=== PATIENT | male | born 1955 | race African-American/Black ===

== ENCOUNTER 2017-01-17 13:36 | Emergency (ER) | payer BC ==
[~2017-01-17] VITALS: Ht 185.4 cm; Wt 127.0 kg
[~2017-01-17 13:36] MED LIST: AMLO5TAB4 PO; HYDR25TA PO; Hydrocodone/Acetaminophen PO; INSU100V8 SQ; OLME40TA PO; SIMV40TA3 PO; TRIA1TAB3 PO; WARF7.5T PO; WARF7.5T6 PO
[2017-01-17 14:37] VITALS: BP 100/65
--- NOTE | 2017-01-17 15:51 | PHYS DOC ---
Past Medical History Past Medical History: Diabetes-Type II, DVT, High Cholesterol, Heart Disease, Hypertension, Other Additional Past Medical Histor: [facility] Past Surgical History: Pacemaker Alcohol Use: None Drug Use: None Adult General Chief Complaint Chief Complaint: COUGH HPI HPI Patient is a 61 year old female presents emergency department stating that he was exposed to upper respiratory infection on Wednesday. He states that he's developed a cough congestion denies any fever but states that he's felt warm. Patinet denies taking anything [id number]. He denies any nausea or vomiting. Review of Systems Review of Systems Constitutional: Denies fever or chills [] Eyes: Denies change in visual acuity, redness, or eye pain [] HENT: nasal congestion denies sore throat [] Respiratory: cough denies shortness of breath [] Cardiovascular: No additional information not addressed in HPI [] GI: Denies abdominal pain, nausea, vomiting, bloody stools or diarrhea [] : Denies dysuria or hematuria [] Musculoskeletal: Denies back pain or joint pain [] Integument: Denies rash or skin lesions [] Neurologic: Denies headache, focal weakness or sensory changes [] Allergies Allergies Allergies Coded Allergies Type Severity Reaction Last Updated Verified No Known Drug Allergies 04/09/14 No Physical Exam Physical Exam Constitutional: Well developed, well nourished, no acute distress, non-toxic appearance. [] HENT: Normocephalic, atraumatic, bilateral external ears normal, oropharynx moist, no oral exudates, nose normal. Bilateral tympanic membranes appear to be normal. Throat with no erythematous post nasal drip. No exudate noted Eyes: PERRLA, EOMI, conjunctiva normal, no discharge. [] Neck: Normal range of motion, no tenderness, supple, no stridor. [] Cardiovascular:Heart rate regular rhythm, no murmur [] Lungs & Thorax: Bilateral breath sounds clear to auscultation [] Skin: Warm, dry, no erythema, no rash. [] Back: No tenderness Extremities: No tenderness, no cyanosis, no clubbing, ROM intact, no edema. [] Neurologic: Alert and oriented X 3, normal motor function, normal sensory function, no focal deficits noted. [] Psychologic: Affect normal, judgement normal, mood normal. [] Current Patient Data Vital Signs Vital Signs Date Time Temp Pulse Resp B/P Pulse Ox O2 Delivery O2 Flow Rate FiO2 01/17/17 14:37 98.8 65 18 97 Room Air 98.8 Lab Values Laboratory Tests Test 01/17/17 15:25 Influenza Type A Antigen Negative (NEGATIVE) Influenza Type B Antigen Negative (NEGATIVE) EKG EKG [] Radiology/Procedures Radiology/Procedures [] Course & Med Decision Making Course & Med Decision Making Pertinent Labs and Imaging studies reviewed. (See chart for details) Influenza Swabs were negative. Patient will be discharged home with recommendations for Tylenol and ibuprofen for pain and discomfort as well as fever. Patient will be provided with some amoxicillin for upper respiratory infection. Patient agrees with discharge instructions treatment regimens and follow-up recommendations. Signs and symptoms to return back to emergency department as been provided. [] Dragon Disclaimer Dragon Disclaimer This electronic medical record was generated, in whole or in part, using a voice recognition dictation system. Departure Departure Impression: Primary Impression: URI (upper respiratory infection) Disposition: HOME, SELF-CARE Condition: STABLE Referrals: SAL BRUSH (PCP) Patient Instructions: Upper Respiratory Infection, Adult, [id number] Additional Instructions: Activity as tolerated. Tylenol or ibuprofen for fever chills or generalized body aches and discomfort. Drink plenty of fluids such as water, Gatorade or propel. Medication as prescribed. You may take Mucinex DM over the counter for cough and congestion. Take as directed by manufacture Followup with your primary care provider in 5-7 days Return to emergency department as needed for signs and symptoms that become worse. Scripts Amoxicillin 500 Mg Capsule1 Cap PO BID #20 CAP Prov:NNEKA IQBAL NP 01/17/17 NNEKA IQBAL [employer] Jan 17, 2017 15:51
[2017-01-17 16:12] LABS: OBC FLU VALID
[2017-01-17] MEDS ORDERED: AMOX500C PO (16:39)
== END 2017-01-17 16:45 | disposition home or self-care (01) ==
LOC: ER 13:36
DX: J06.9 Acute upper respiratory infection, unspecified (principal); E11.9 Type 2 diabetes mellitus without complications; E78.00 Pure hypercholesterolemia, unspecified; I11.9 Hypertensive heart disease without heart failure; Z95.0 Presence of cardiac pacemaker; Z86.718 Personal history of other venous thrombosis and embolism
CPT/HCPCS: 87804; 99284

== ENCOUNTER 2017-11-11 02:55 | Emergency (ER) | payer BC ==
[~2017-11-11] VITALS: Ht 185.4 cm; Wt 120.2 kg
[2017-11-11 02:55] VITALS: BP 174/90
[~2017-11-11 02:55] MED LIST changes: +AMOX500C PO; -OLME40TA PO; +OLME40TA12 PO; -WARF7.5T PO; +WARF7.5T48 PO
[2017-11-11 04:25] LABS: BASO # 0.1 x10^3/uL (0.0-0.2); BASO % 1 % (0-3); EOS % 2 % (0-3); HEMATOCRIT 36.3 % (39.0-53.0); HEMOGLOBIN 11.8 g/dL (13.0-17.5); LYMPH # 1.7 x10^3/uL (1.0-4.8); LYMPH % 17 % (24-48); MEAN CORPUSCULAR HEMOGLOBIN 31 pg (25-35); MEAN CORPUSCULAR HGB CONC 32 g/dL (31-37); MEAN CORPUSCULAR VOLUME 95 fL (79-100); MONO % 6 % (0-9); NEUT % 75 % (31-73); PLATELET COUNT 224 x10^3/uL (140-400); RED BLOOD COUNT 3.82 x10^6/uL (4.30-5.70); RED CELL DISTRIBUTION WIDTH 14.9 % (11.5-14.5); WHITE BLOOD COUNT 10.3 x10^3/uL (4.0-11.0)
[2017-11-11 04:34] LABS: INR 2.9 (0.8-1.1); PROTHROMBIN TIME PATIENT 28.4 SEC (11.7-14.0)
[2017-11-11 04:46] LABS: CALCIUM 8.7 mg/dL (8.5-10.1); CREATININE 1.2 mg/dL (0.7-1.3); GFR 74.7; POTASSIUM 4.1 mmol/L (3.5-5.1)
[2017-11-11 04:51] LABS: ALBUMIN 3.2 g/dL (3.4-5.0); ALBUMIN/GLOBULIN RATIO 0.6 (1.0-1.7); TOTAL BILIRUBIN 0.5 mg/dL (0.2-1.0); TOTAL PROTEIN 8.7 g/dL (6.4-8.2)
--- NOTE | 2017-11-11 05:04 | PHYS DOC ---
Past Medical History Past Medical History: Diabetes-Type II, DVT, High Cholesterol, Heart Disease, Hypertension, Other Additional Past Medical Histor: [facility] Past Surgical History: Pacemaker Alcohol Use: None Drug Use: None Adult General Chief Complaint Chief Complaint: LOWER EXT PAIN HPI HPI Patient is a 62 year old -[place] male with history of DVT and diabetes who presents with right posterior leg pain since yesterday. Patient denies trauma or repetitive strain injury. Patient is currently on Coumadin compliant with treatment.Denies chest pain shortness of breath. Patient has been using crutches to ambulate. No pain medications taken prior to ED arrival.[ ] Review of Systems Review of Systems Review symptoms as per history of present illness. All other review symptoms are negative. All other systems were reviewed and found to be within normal limits, except as documented in this note. Allergies Allergies Allergies Coded Allergies Type Severity Reaction Last Updated Verified No Known Drug Allergies 04/09/14 No Physical Exam Physical Exam Constitutional: Well developed, well nourished, no acute distress, non-toxic appearance. [] HENT: Normocephalic, atraumatic, bilateral external ears normal, oropharynx moist, no oral exudates, nose normal. [] Eyes: PERRLA, EOMI, conjunctiva normal, no discharge. [] Neck: Normal range of motion, no tenderness, supple, no stridor. [] Cardiovascular:Heart rate regular rhythm, no murmur [] Extremities: No tenderness, negative Homans sign. Tenderness over Achilles tendon. [] Neurologic: Alert and oriented X 3, normal motor function, normal sensory function, no focal deficits noted. [] Psychologic: Affect normal, judgement normal, mood normal. [] Current Patient Data Vital Signs Vital Signs Date Time Temp Pulse Resp B/P (MAP) Pulse Ox O2 Delivery O2 Flow Rate FiO2 11/11/17 02:55 98.0 70 18 174/90 (118) 98 Room Air 98.0 Lab Values Laboratory Tests Test 11/11/17 04:18 White Blood Count 10.3 x10^3/uL (4.0-11.0) Red Blood Count 3.82 x10^6/uL (4.30-5.70) L Hemoglobin 11.8 g/dL (13.0-17.5) L Hematocrit 36.3 % (39.0-53.0) L Mean Corpuscular Volume 95 fL (79-100) Mean Corpuscular Hemoglobin 31 pg (25-35) Mean Corpuscular Hemoglobin Concent 32 g/dL (31-37) Red Cell Distribution Width 14.9 % (11.5-14.5) H Platelet Count 224 x10^3/uL (140-400) Neutrophils (%) (Auto) 75 % (31-73) H Lymphocytes (%) (Auto) 17 % (24-48) L Monocytes (%) (Auto) 6 % (0-9) Eosinophils (%) (Auto) 2 % (0-3) Basophils (%) (Auto) 1 % (0-3) Neutrophils # (Auto) 7.8 x10^3uL (1.8-7.7) H Lymphocytes # (Auto) 1.7 x10^3/uL (1.0-4.8) Monocytes # (Auto) 0.6 x10^3/uL (0.0-1.1) Eosinophils # (Auto) 0.2 x10^3/uL (0.0-0.7) Basophils # (Auto) 0.1 x10^3/uL (0.0-0.2) Prothrombin Time 28.4 SEC (11.7-14.0) H Prothrombin Time INR 2.9 (0.8-1.1) H D-Dimer (Virgen) 0.83 ug/mlFEU (0.00-0.50) H Sodium Level 138 mmol/L (136-145) Potassium Level 4.1 mmol/L (3.5-5.1) Chloride Level 101 mmol/L (98-107) Carbon Dioxide Level 28 mmol/L (21-32) Anion Gap 9 (6-14) Blood Urea Nitrogen 17 mg/dL (8-26) Creatinine 1.2 mg/dL (0.7-1.3) Estimated GFR (Cockcroft-Gault) 74.7 BUN/Creatinine Ratio 14 (6-20) Glucose Level 222 mg/dL (70-99) H Calcium Level 8.7 mg/dL (8.5-10.1) Total Bilirubin 0.5 mg/dL (0.2-1.0) Aspartate Amino Transferase (AST) 29 U/L (15-37) Alanine Aminotransferase (ALT) 36 U/L (16-63) Alkaline Phosphatase 127 U/L (46-116) H Total Protein 8.7 g/dL (6.4-8.2) H Albumin 3.2 g/dL (3.4-5.0) L Albumin/Globulin Ratio 0.6 (1.0-1.7) L Laboratory Tests 11/11/17 04:18 Laboratory Tests 11/11/17 04:18 EKG EKG [] Radiology/Procedures Radiology/Procedures [RLE venous Doppler US: No DVT per radiology report] Course & Med Decision Making Course & Med Decision Making Pertinent Labs and Imaging studies reviewed. (See chart for details) [Lower extremity pain with h/o DVT. Tenderness over Achilles tendon, venous doppler. Neg for DVT. ] Dragon Disclaimer Dragon Disclaimer This electronic medical record was generated, in whole or in part, using a voice recognition dictation system. Departure Departure Impression: Primary Impression: Right leg pain Additional Impression: Tendinitis Disposition: 01 HOME, SELF-CARE Condition: GOOD Referrals: SAL BRUSH (PCP) Problem Qualifiers ALEK BRUSH DO Nov 11, 2017 05:04
--- NOTE | 2017-11-11 05:50 | RAD ---
Right lower extremity venous duplex study 11/11/2017 Clinical History: Right leg pain for one day. Technique: Using a combination of real time ultrasound imaging and color-flow and pulse Doppler imaging techniques along with graded compression and augmentation, duplex evaluation of the deep venous system of the right lower extremity was performed. Multiple images were obtained. Findings: There is no sonographic evidence of deep venous thrombosis involving the visualized deep venous structures of right lower extremity. Impression: Negative study. Electronically signed by: Lamont Jj MD (11/11/2017 5:47 AM) [email or web address]
== END 2017-11-11 06:09 | disposition home or self-care (01) ==
LOC: ER 02:55
DX: M76.9 Unspecified enthesopathy, lower limb, excluding foot (principal); E11.9 Type 2 diabetes mellitus without complications; E78.00 Pure hypercholesterolemia, unspecified; I11.9 Hypertensive heart disease without heart failure; Z95.0 Presence of cardiac pacemaker; Z86.718 Personal history of other venous thrombosis and embolism
CPT/HCPCS: 36415; 80053; 85025; 85379; 85610; 93971; 99285-25

== ENCOUNTER 2020-10-09 01:34 | Emergency (ER) | payer BC ==
[~2020-10-09] VITALS: Ht 182.9 cm; Wt 120.4 kg
[~2020-10-09 01:34] MED LIST changes: +SIMV40TA18 PO; -SIMV40TA3 PO; +WARF7.5T45 PO; -WARF7.5T6 PO
[2020-10-09 01:45] VITALS: BP 135/75
--- NOTE | 2020-10-09 01:58 | PHYS DOC ---
Past Medical History Past Medical History: Diabetes-Type II, DVT, High Cholesterol, Heart Disease, Hypertension, Other Additional Past Medical Histor: W Past Surgical History: Pacemaker Smoking Status: Never Smoker Alcohol Use: None Drug Use: None General Adult EDM: Chief Complaint: COUGH HPI: HPI: 65-year-old male past medical history significant for diabetes, hypertension, hyperlipidemia, history of DVT on warfarin, presents to the ED with complaints of "I have a cold" described as a dry cough and hoarse voice since Wednesday, no relief with tylenol and sugar-free Robitussin. Patient states last time he had the symptoms he came to the ER and was prescribed antibiotics for pneumonia, this feels similar. Has pmd appointment for well check scheduled for October 15 but does not want to wait this long due to his history of diabetes. Declines testing for Covid or influenza, "I don't have that." Is not a smoker/no history of COPD or asthma. Review of Systems: Review of Systems: Constitutional: Denies fever or chills. [] Eyes: Denies change in visual acuity. [] HENT: Denies nasal congestion, rhinorrhea, sinus congestion, drooling, speech changes or sore throat. [] Respiratory: Denies hemoptysis or shortness of breath. [] Cardiovascular: Denies chest pain or edema or syncope. [] GI: Denies abdominal pain, nausea, vomiting, bloody stools or diarrhea. [] : Denies dysuria or hematuria. [] Musculoskeletal: Denies back pain or joint pain. [] Integument: Denies rash or diaphoresis. [] Neurologic: Denies headache, focal weakness or sensory changes. [] No nuchal rigidity Endocrine: Denies polyuria or polydipsia. [] Lymphatic: Denies swollen glands. [] Psychiatric: Denies depression or anxiety. [] Heart Score: Risk Factors: Risk Factors: DM, Current or recent (<one month) smoker, HTN, HLP, family history of CAD, obesity. Risk Scores: Score 0 - 3: 2.5% MACE over next 6 weeks - Discharge Home Score 4 - 6: 20.3% MACE over next 6 weeks - Admit for Clinical Observation Score 7 - 10: 72.7% MACE over next 6 weeks - Early Invasive Strategies Allergies: Allergies: Allergies Coded Allergies Type Severity Reaction Last Updated Verified No Known Drug Allergies 04/09/14 No Physical Exam: PE: Constitutional: Well developed, well nourished, no acute distress, non-toxic appearance. [] HENT: Normocephalic, atraumatic, bilateral external ears normal, oropharynx moist, no oral exudates, nose normal. [] Eyes: EOMI, conjunctiva normal, no discharge. [] Neck: Normal range of motion, supple,] Cardiovascular: S1 and S2 present Lungs & Thorax: Speaking in full sentences, no respiratory distress, no tac hypnea or hypoxia Abdomen: soft, no tenderness, Skin: Warm, dry, no erythema, no rash. [] Extremities: No tenderness, , ROM intact, +1/4 equal/bl LE edema. [] Neurologic: Alert and oriented X 3, normal motor function, normal sensory function, no focal deficits noted. [] Psychologic: Affect normal, judgement normal, mood normal. [] EKG: EKG: [] Radiology/Procedures: Radiology/Procedures: IMAGING REPORT Signed PATIENT: JESSICA BIRMINGHAM ACCOUNT: [id number] : 1955 LOCATION: ER AGE: 65 SEX: M EXAM STATUS: DEP ER ORD. PHYSICIAN: SOCORRO MONK DO REASON: cough PROCEDURE: CHEST PA & LATERAL Study: CR CHEST PA LATERAL Indication: Cough. Comparison: 09/05/2015 Findings: Left chest wall multilead pacer is intact. Upper limits of normal size of the cardiomediastinal silhouette. No overt central vascular congestion. Asymmetric hazy attenuation at the infrahilar right lung. There is also haziness at the retrocardiac clear space on the lateral view. Both of these observations are more conspicuous from the 2014 comparison. Also noted on the lateral view is peribronchial cuffing. No pleural effusion or pneumothorax. Impression: Mild haziness at the infrahilar right lung and retrocardiac clear space. A developing infiltrate is possible. Peribronchial cuffing also noted which could indicate underlying bronchitis. Electronically signed by: JIMENA PRADO MD (10/09/2020 2:35 AM) [id number] DICTATED and SIGNED BY: JIMENA PRADO MD DATE: 10/09/20 0235 Course & Med Decision Making: Course & Med Decision Making Pertinent Labs and Imaging studies reviewed. (See chart for details) Concern for upper respiratory infection for the past 2 to 3 days described as cough and hoarse voice, and very well-appearing male, no fatigue, generalized weakness or malaise, no cp/soa/sinus pressure, earache or increased sputum production. Chest x-ray two-view mild right hazyiness, could be early pna.Rx for z-pac. Patient hemodynamically stable with no tachycardia or hypoxia. . Will dc home with conservative measures, [id number]-ekr-ecstwea antitussives. Strict ED return precautions were given for chest pain, dyspnea, increased work of breathing, strokelike symptoms or syncope. Encouraged urgent outpatient follow- up with PMD. Life-threatening processes were considered but are low suspicion at this time, given history and physical exam. Pt was educated on all prescription medications and adverse effects. All patient's questions were answered and pt was stable at time of discharge. Life/limb-threatening differential includes but is not limited to, surgical abdomen (appendicitis, cholecystitis, diverticulitis, inflammatory bowel disease, abscess, perforation), meningitis, encephalitis, Mckinley's angina, endocarditis, myocarditis, life-threatening rash (necrotizing fasciitis), gynecologic and urologic emergencies (testicular torsion, obstructive nephropathy, prostatitis), head and neck abscess, sepsis or shock, coivd 19/influenza, or respiratory failure. I spoken with the patient and her caregivers. I explained the patient's condition, diagnoses and treatment plan based on the information available to me at this time. I have answered the patient and her caregiver's questions and addressed any concerns. The patient and her caregivers have a good understanding of patient's diagnosis, condition and treatment plan as can be expected at this point. Vital signs have been stable. Patient's condition is stable and appropriate for discharge from the emergency department. Patient will pursue further outpatient evaluation with primary care physician or other designated or consulting physician as outlined in the discharge instructions. The patient and/or caregivers are agreeable to this plan of care and follow-up instructions have been explained in detail. The patient and/or caregivers have received these instructions in written form and have expressed an understanding of the discharge instructions. The patient and/or caregivers are aware that any significant change of condition or worsening of symptoms should prompt immediate return to this or the closest emergency department or call to 911. Yoli Disclaimer: Yoli Disclaimer: This electronic medical record was generated, in whole or in part, using a voice recognition dictation system. Departure Departure Impression: Primary Impression: URI (upper respiratory infection) Additional Impression: Cough Disposition: 01 DC HOME SELF CARE/HOMELESS Condition: STABLE Referrals: WILLIAMS LUKE MD (PCP) followup as scheduled for 10/15/20 Patient Instructions: Cough, Adult, Upper Respiratory Infection, Adult Additional Instructions: EMERGENCY DEPARTMENT GENERAL DISCHARGE INSTRUCTIONS Thank you for coming to [facility] Emergency Department (ED) today and trusting us with you care. We trust that you had a positive experience in our Emergency Department. If you wish to speak to the department management, you may call the Director at [phone]. YOUR FOLLOW UP INSTRUCTIONS ARE FOLLOWS: 1. Do you have a private Doctor? If you do not have a private doctor, please ask for a resource list of physicians or clinics that may be able to assist you with follow up care. 2. The Emergency Physicain has interpreted your x-rays. The X-Ray specialist will also review them. If there is a change in the findings, you will be notified in 48 hours when at all possible. 3. A lab test or culture has been done, your results will be reviewed and you will be notified if you need a change in treatment. ADDITIONAL INSTRUCTIONS AND INFORMATION: 1. Your care today has been supervised by a physician who is specially trained in emergency care. Many problems require more than one evaluation for a complete diagnosis and treatment. We recommend that you schedule your follow up appointment as recomme nded to ensure complete treatment of you illness or injury. If you are unable to obtain follow up care and continue to have a problem, or if your condition worsens, we recommend that you return to the ED. 2. We are not able to safely determine your condition over the phone nor are we able to give sound medical advice over the phone. For these safety reasons, if you call for medical advice we will ask you to come to the ED for further evaluation. 3. If you have any questions regarding these discharge instructions please call the ED at [phone]. SAFETY INFORMATION: In the interest of safety, wellness, and injury prevention; we encourage you to wear your sealbelt, if you smoke; quite smoking, and we encourage family to use a protective helmet for bicycling and other sporting events that present an increased risk for head injury. IF YOUR SYMPTOMS WORSEN OR NEW SYMPTOMS DEVELOP, OR YOU HAVE CONCERNS ABOUT YOUR CONDITION; OR IF YOUR CONDITION WORSENS WHILE YOU ARE WAITING FOR YOUR FOLLOW UP APPOINTMENT; EITHER CONTACT YOUR PRIMARY CARE DOCTOR, THE PHYSICIAN WHOSE NAME AND NUMBER YOU WERE GIVEN, OR RETURN TO THE ED IMMEDIATELY. Scripts Azithromycin (ZITHROMAX) 250 Mg Tablet 250 PKG PO UD, #6 TAB Prov: SOCORRO MONK DO 10/09/20 SOCORRO MONK DO Oct 09, 2020 01:58
--- NOTE | 2020-10-09 02:38 | RAD ---
Study: CR CHEST PA LATERAL Indication: Cough. Comparison: 09/05/2015 Findings: Left chest wall multilead pacer is intact. Upper limits of normal size of the cardiomediastinal silhouette. No overt central vascular congestion. Asymmetric hazy attenuation at the infrahilar right lung. There is also haziness at the retrocardiac clear space on the lateral view. Both of these observations are more conspicuous from the 2014 comparison. Also noted on the lateral view is peribronchial cuffing. No pleural effusion or pneumothorax. Impression: Mild haziness at the infrahilar right lung and retrocardiac clear space. A developing infiltrate is possible. Peribronchial cuffing also noted which could indicate underlying bronchitis. Electronically signed by: JIMENA PRADO MD (10/09/2020 2:35 AM) [id number]
[2020-10-09] MEDS ORDERED: AZIT250T PO (02:46)
== END 2020-10-09 02:35 | disposition home or self-care (01) ==
LOC: ER 01:34
DX: J06.9 Acute upper respiratory infection, unspecified (principal); R05 Cough; E11.9 Type 2 diabetes mellitus without complications; E78.00 Pure hypercholesterolemia, unspecified; I11.9 Hypertensive heart disease without heart failure; Z98.890 Other specified postprocedural states; Z95.0 Presence of cardiac pacemaker; Z86.718 Personal history of other venous thrombosis and embolism
CPT/HCPCS: 71046; 99283

== ENCOUNTER 2020-11-03 17:54 | Emergency (ER) | payer BC ==
[~2020-11-03] VITALS: Ht 185.4 cm; Wt 111.0 kg
[~2020-11-03 17:54] MED LIST changes: +AZIT250T PO
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
--- NOTE | 2020-11-03 19:13 | RAD ---
Right lower extremity venous Doppler ultrasound History: Reason: pain and swelling hx of DVT Comparison: None. Procedure: Color flow Doppler, Doppler spectral analysis, and 2D images are obtained with and without compression in the area of the common femoral vein, superficial femoral vein - femoral vein junction, main femoral vein (superficial femoral vein) and popliteal vein. Veins of the proximal calf are also imaged. Findings: There is normal color flow, augmentation, and compressibility of all visualized vein segments. No evidence of deep venous thrombus is present. Limited visualization of peroneal vein. IMPRESSION: No evidence of right lower extremity deep venous thrombosis. Electronically signed by: Nawaf Ferrer MD (11/03/2020 7:10 PM) [facility]
[2020-11-03 19:24] VITALS: BP 173/89
== END 2020-11-03 20:25 | disposition home or self-care (01) ==
LOC: ER 17:54
DX: M79.671 Pain in right foot (principal); Z86.718 Personal history of other venous thrombosis and embolism; Z79.01 Long term (current) use of anticoagulants; E11.9 Type 2 diabetes mellitus without complications; I11.9 Hypertensive heart disease without heart failure; E78.00 Pure hypercholesterolemia, unspecified; Z95.0 Presence of cardiac pacemaker; Z86.73 Personal history of transient ischemic attack (TIA), and cerebral infarction without residual deficits
CPT/HCPCS: 93971; 99284